=== PATIENT | male | born 1980 | race Caucasian/White ===

== ENCOUNTER 2017-12-08 09:11 | Emergency (ER) | payer OTHER ==
[~2017-12-08] VITALS: Ht 177.8 cm; Wt 79.4 kg
[2017-12-08] MEDS ORDERED: LISINOPRIL10 MG PO (09:19)
[2017-12-08 10:41] VITALS: BP 120/84
== END 2017-12-08 10:43 ==
LOC: M.ERS 09:11
DX: M20.012 Mallet finger of left finger(s) (principal); I10 Essential (primary) hypertension